=== PATIENT | male | born 1970 | race Caucasian/White ===

== ENCOUNTER 2024-04-10 01:26 | Emergency (ER) | payer OTHER ==
[2024-04-10 01:39] VITALS: BP 137/93; PULSE 60; RESP 18; TEMP 98.8; BMI 26.1
[2024-04-10] MEDS ORDERED: MAG HYDROX/AL HYDROX/SIMETH 30 ML UNIT-DOSE CUP ONE (02:56)
[2024-04-10] MEDS: MAG HYDROX/AL HYDROX/SIMETH 30 ML UNIT-DOSE CUP PO ONE (03:24)
[2024-04-10] MEDS ORDERED: FAMOTIDINE 20 MG/50 ML IVPB 20 MG/50 ML MG IVPB ONE (03:26)
[2024-04-10 03:29] LABS: BASO % 0.5 % (0-2.0); EOS % 2.6 % (0-4.5); HEMATOCRIT 40.1 % (35.4-49); HEMOGLOBIN 13.7 GM/dL (11.7-16.9); LYMPH % 30.8 % (8-40); MCH 30.4 pg (25.7-33.7); MCHC 34.2 g/dl (32.0-35.9); MEAN CELL VOLUME 88.9 fl (80-96); MEAN PLT VOLUME 7.9 fl (7.5-11.1); MONO % 7.9 % (3.8-10.2); NEUT % 58.2 % (42.8-82.8); PLATELET COUNT 223 10^3/uL (134-434); RBC 4.51 M/mm3 (4.00-5.60); RDW 12.8 % (11.9-15.9); URINE APPEARANCE CLEAR; URINE BILIRUBIN NEGATIVE (NEGATIVE); URINE COLOR YELLOW; URINE GLUCOSE (UA) NEGATIVE (NEGATIVE); URINE KETONE NEGATIVE (NEGATIVE); URINE LEUK ESTERASE NEGATIVE (NEGATIVE); URINE NITRITE NEGATIVE (NEGATIVE); URINE PROTEIN NEGATIVE (NEGATIVE); URINE UROBILINOGEN 0.2 mg/dL (0.2-1.0); WHITE BLOOD COUNT 6.8 K/mm3 (4.0-10.0)
[2024-04-10] MEDS: FAMOTIDINE 20 MG/50 ML IVPB 20 MG/50 ML MG IVPB ONE (03:42)
[2024-04-10 03:48] LABS: POTASSIUM 4.6 mmol/L (3.5-5.1)
[2024-04-10 03:51] LABS: ALBUMIN 3.9 g/dl (3.4-5.0); BLOOD UREA NITROGEN 14.3 mg/dL (7-18)
[2024-04-10 03:54] LABS: CREATININE 0.9 mg/dL (0.55-1.3)
[2024-04-10 03:55] LABS: BILIRUBIN,TOTAL 0.5 mg/dL (0.2-1)
[2024-04-10 03:56] LABS: TOT PROT 7.5 g/dl (6.4-8.2)
== END 2024-04-10 04:33 | disposition home or self-care (01) ==
LOC: JER 01:26
PROC: 3E033GC Introduction of Other Therapeutic Substance into Peripheral Vein, Percutaneous Approach (ICD-10-PCS; principal; 2024-04-10)
DX: R10.13 Epigastric pain (principal)
CPT/HCPCS: 36415; 80053; 81003; 83690; 84484; 85025; 93005; 93010; 99284-25